=== PATIENT | female | born 1985 | race Caucasian/White ===

== ENCOUNTER → 2019-01-11 07:49 | Outpatient (CLI) | payer MEDICAID, SELFPAY ==
[2018-12-30 10:20] VITALS: BMI 38.2
--- NOTE | 2019-01-11 07:52 | US_ITS ---
STUDY: ULTRASOUND OF THE FEMALE PELVIS - COMPLETE REASON FOR EXAM: Female, 33 years old. Abnormal uterine bleeding. LMP: December 04, 2018. TECHNIQUE: Transabdominal and Transvaginal TECHNICAL QUALITY: Adequate. COMPARISON: None. FINDINGS: The uterus is anteverted and is in a midline position. The uterus measures 8.9 cm x 6.3 cm x 5.4 cm. There is a Nabothian cyst of the cervix. The endometrium measures 10.0 mm in thickness, and is hyperechoic. There is no demonstrated endometrial mass. There is no demonstrated myometrial mass. I.U.D. - The patient does not have an I.U.D. The right ovary is visualized. The right ovary measures 2 cm x 1.6 cm x 1.5 cm. There is no right ovarian cyst or ovarian mass. There is no visualized right adnexal mass or complex lesion. There is normal arterial and normal venous vascularity. The left ovary is visualized. The left ovary measures 3.1 cm x 2.1 cm x 1.4 cm. There is no left ovarian cyst or ovarian mass. There is no visualized left adnexal mass or complex lesion. There is normal arterial and normal venous vascularity. There is no fluid in the cul-de-sac. The pre void volume of the bladder was 462 ml. Polycystic ovary disease: No. US/Transvaginal Non- IMPRESSION: Endometrial thickness within the upper limits of normal. Electronically Signed: Abimael Gerardo, at 8:44 EDT , Service support ,
--- NOTE | 2019-01-11 07:52 | US_ITS ---
STUDY: ULTRASOUND OF THE FEMALE PELVIS - COMPLETE REASON FOR EXAM: Female, 33 years old. Abnormal uterine bleeding. LMP: December 04, 2018. TECHNIQUE: Transabdominal and Transvaginal TECHNICAL QUALITY: Adequate. COMPARISON: None. FINDINGS: The uterus is anteverted and is in a midline position. The uterus measures 8.9 cm x 6.3 cm x 5.4 cm. There is a Nabothian cyst of the cervix. The endometrium measures 10.0 mm in thickness, and is hyperechoic. There is no demonstrated endometrial mass. There is no demonstrated myometrial mass. I.U.D. - The patient does not have an I.U.D. The right ovary is visualized. The right ovary measures 2 cm x 1.6 cm x 1.5 cm. There is no right ovarian cyst or ovarian mass. There is no visualized right adnexal mass or complex lesion. There is normal arterial and normal venous vascularity. The left ovary is visualized. The left ovary measures 3.1 cm x 2.1 cm x 1.4 cm. There is no left ovarian cyst or ovarian mass. There is no visualized left adnexal mass or complex lesion. There is normal arterial and normal venous vascularity. There is no fluid in the cul-de-sac. The pre void volume of the bladder was 462 ml. Polycystic ovary disease: No. US/Pelvic (Non ) IMPRESSION: Endometrial thickness within the upper limits of normal. Electronically Signed: Abimael Gerardo, at 8:44 EDT , Service support ,
== END ==
PROVIDERS: Family Provider Internal Medicine; PCP Internal Medicine; Referring Provider Obstetrics & Gynecology; Visit Provider Obstetrics & Gynecology
DX: N93.9 Abnormal uterine and vaginal bleeding, unspecified (principal); F32.81 Premenstrual dysphoric disorder
CPT/HCPCS: 76830; 76856

== ENCOUNTER → 2019-01-15 14:38 | Outpatient (CLI) | payer MEDICAID, SELFPAY ==
[2018-12-30 10:20] VITALS: BMI 38.2
[2019-01-15 15:52] LABS: Estradiol 20.1 pg/mL; Follicle Stimulating Hormone 3.5 mIU/mL; Prolactin 10.2 ng/mL; T4 Free Direct 0.85 ng/dL (0.76-1.46); Thyroid Stim Hormone (TSH) 3.42 uIU/mL (0.358-3.74)
[2019-01-18 16:12] LABS: DHEA Sulfate 112.5 ug/dL (57.3-279.2)
[2019-01-18 16:33] LABS: Testosterone Free 0.3 pg/mL (0.0-4.2)
[2019-01-22 11:34] LABS: 17-Hydroxyprogesterone < 10 ng/dL (.); Vitamin D 1,25-Dihydroxy 52.8 pg/mL (19.9-79.3)
== END ==
PROVIDERS: Family Provider Internal Medicine; PCP Internal Medicine; Referring Provider Obstetrics & Gynecology; Visit Provider Obstetrics & Gynecology
DX: N93.9 Abnormal uterine and vaginal bleeding, unspecified (principal); F32.81 Premenstrual dysphoric disorder
CPT/HCPCS: 82627; 82652; 82670; 83001; 83498; 84146; 84402; 84439; 84443; 82626

== ENCOUNTER → 2019-02-03 13:51 | Outpatient (CLI) | payer MEDICAID, SELFPAY ==
[2019-02-03 13:44] VITALS: BMI 38.2
[2019-02-03 15:46] LABS: HIV - WCH Non-Reactive (Nonreactive)
[2019-02-03 17:56] LABS: Chlamydia Trachomatis by PCR Negative (Negative); Neisserai gonorrhoeae by PCR Negative (Negative); Probe Check PASS; Sample Adequacy Control PASS; Specimen Processing Control PASS
[2019-02-04 02:21] LABS: Rapid Plasmin Reagin (RPR) NONREACTIVE (NONREACTIVE)
[2019-02-06 09:07] LABS: HCV Quant. RNA PCR HCV Not Detected IU/mL (.)
[2019-02-06 11:40] LABS: HSV 1 IgG < 0.91 index (0.00-0.90); HSV 2 IgG < 0.91 index (0.00-0.90)
== END ==
PROVIDERS: Family Provider Internal Medicine; PCP Internal Medicine; Referring Provider Obstetrics & Gynecology; Visit Provider Obstetrics & Gynecology
DX: Z11.3 Encounter for screening for infections with a predominantly sexual mode of transmission (principal)
CPT/HCPCS: 36415; 86592; 86695; 86696; 86703; 87491; 87522; 87591

== ENCOUNTER → 2019-12-02 12:55 | Outpatient (CLI) | payer MEDICAID, SELFPAY ==
[2019-12-02 12:16] VITALS: BMI 38.2
== END ==
PROVIDERS: PCP Internal Medicine; Referring Provider Nurse Practitioner Women's Health; Visit Provider Nurse Practitioner Women's Health
DX: N76.1 Subacute and chronic vaginitis (principal); N39.0 Urinary tract infection, site not specified; R10.2 Pelvic and perineal pain
CPT/HCPCS: 87070; 87205

== ENCOUNTER → 2020-04-25 17:01 | Outpatient (CLI) | payer MEDICAID, SELFPAY ==
[2020-04-25 16:18] VITALS: BMI 32.5
[2020-05-01 01:57] LABS: HPV APTIMA, High Risk Positive (Negative)
== END ==
PROVIDERS: PCP Internal Medicine; Referring Provider Obstetrics & Gynecology; Visit Provider Obstetrics & Gynecology
DX: Z12.4 Encounter for screening for malignant neoplasm of cervix (principal)
CPT/HCPCS: 87624; 88175; G0145

== ENCOUNTER → 2020-04-28 07:37 | Outpatient (CLI) | payer MEDICAID, SELFPAY ==
[2020-04-25 16:18] VITALS: BMI 32.5
[2020-04-28 08:42] LABS: Vitamin D,25 Hydroxy 32.4 ng/mL
[2020-04-28 08:47] LABS: Cholesterol 172 mg/dL (200); Glucose 73 mg/dL (74-106); High Density Lipoprotein 61 mg/dL; Thyroid Stim Hormone (TSH) 4.49 uIU/mL (0.358-3.74); Triglycerides 109 mg/dL; Very Low Density Lipoprotein 22 mg/dL (5-40)
== END ==
PROVIDERS: PCP Internal Medicine; Referring Provider Obstetrics & Gynecology; Visit Provider Obstetrics & Gynecology
DX: Z01.411 Encounter for gynecological examination (general) (routine) with abnormal findings (principal)
CPT/HCPCS: 36415; 80061; 82306; 82947; 84443

== ENCOUNTER → 2020-05-05 07:42 | Outpatient (CLI) | payer MEDICAID, SELFPAY ==
[2020-04-25 16:18] VITALS: BMI 32.5
--- NOTE | 2020-05-05 07:54 | US_ITS ---
STUDY: THYROID ULTRASOUND REASON FOR EXAM: Female, 35 years old. ELEVATED TSH -- HX OF HASHIM OTTOS TECHNIQUE: Ultrasound evaluation of the thyroid was performed with real-time and static vasquez-scale imaging. COMPARISON: None. FINDINGS: RIGHT LOBE: The right lobe of the thyroid gland measures 4.9 cm x 1.7 cm x 1.3 cm. There is a heterogeneous echotexture. There are 3 hypoechoic solid nodules within the right lobe. The largest measures 1 cm x 0.8 cm x 0.4 cm. LEFT LOBE: The left lobe of the thyroid gland measures 4.9 cm x 1.9 cm x 1 cm. There is a heterogeneous echotexture. 3 subcentimeter hypoechoic solid nodules. The largest measures 7 mm x 4 mm x 3 mm. ISTHMUS: The isthmus measures 4 mm. The regional lymph nodes are normal. US/Thyroid IMPRESSION: Heterogeneous echotexture of both lobes of the thyroid gland. There are 3 small hypoechoic solid nodules in each lobe. The largest measures 1 cm x 0.8 cm x 0.4 cm. This is in the right lobe. Electronically Signed: Abimael Gerardo MD at 10:30 EST , Service support ,
[2020-05-05 08:19] LABS: T4 Free Direct 1.06 ng/dL (0.76-1.46)
[2020-05-05 15:52] LABS: Xtra Tube EP Lab EXTRA TUBE
== END ==
PROVIDERS: PCP Internal Medicine; Referring Provider Obstetrics & Gynecology; Visit Provider Obstetrics & Gynecology
DX: R79.89 Other specified abnormal findings of blood chemistry (principal)
CPT/HCPCS: 36415; 76536; 84439

== ENCOUNTER → 2020-05-11 16:32 | Outpatient (CLI) | payer MEDICAID, SELFPAY ==
--- NOTE | 2020-05-11 | CER_PTH ---
PATIENT: JANA GARBER [id number] AGE/SX: 39/F ROOM: RE05/11/[address]: Dr. Yanira Park MD : 1985 BED: DIS: SPEC #: [id number] RECD: 05/11/20 16:14 STATUS: LENNY DAVIDE #: [id number] IHSAN: 05/11/20 00:[address]: Yanira Park DEPT: SURGICAL PATHOLOGY RECD BY: Clayton Fu ENTERED: 05/12/20 09:19 SP TYPE: CERV OTHR DR: Dr. Chanel Ko MD Tissues: A - Uterine cervix, NOS B - Endocervical Procedures: Surgery Specimen Level IV HEADER OPERATION: Colposcopy PRE-OP DIAGNOSIS: LGSIL TISSUE SUBMITTED: A - Cervical biopsy 2 o'clock, B - ECC MICROSCOPIC DIAGNOSIS A. Cervix at 2 o'clock, biopsy: Focal HPV change present. Chronic inflammation. See comment. B. Endocervix, curettings: Scant strips of benign superficial endocervix. No evidence of dysplasia. AM:hank 05/15/2020 COMMENT A. Results from immunohistochemistry ([id number]) for surrogate HPV marker (p16) will be reported separately. MICROSCOPIC DESCRIPTION Slides are reviewed. GROSS DESCRIPTION A - Received in fixative is one container labeled with the patient's name and designated cervical biopsy 2 o'clock. The specimen consists of one irregular fragment of light pack soft tissue that measures 0.2 x 0.2 x 0.1 cm. The specimen is totally submitted in one cassette. B - Received in fixative is one container labeled with the patient's name and designated ECC. The specimen consists of a scant amount of soft tissue. The specimen is totally submitted for cell block preparation. / SJ:hank 05/12/20 TC:3 CPT: 66613 x2
--- NOTE | 2020-05-11 | IMM_PTH ---
PATIENT: JANA GARBER LOC: [facility] U#:[id number] AGE/SX: 39/F ROOM: RE05/11/[address]: Dr. Yanira Park MD : 1985 BED: DIS: SPEC #: [id number] RECD: 05/15/20 14:29 STATUS: LENNY REQ #: [id number] IHSAN: 05/11/20 00:[address]: Yanira Park DEPT: IMMUNOHISTOCHEMISTRY RECD BY: Christy Dee ENTERED: 05/15/20 14:30 SP TYPE: IMMUNO OTHR DR: Dr. Chanel Ko MD Tissues: A - Uterine cervix, NOS Procedures: p16 (initial) KI-67 (add) PHYSICIAN & INSTITUTION [place] [id number] SPECIMEN INFORMATION: Tissue Source: A - Cervical biopsy 2 o'clock Clinical Info: NIKITA Specimen Number: [id number] CPT code: 65196, 55714 METHODOLOGY: Deparaffinized sections of prefer/formalin-fixed tissue or PAP/DQ stained slides are incubated with monoclonal/polyclonal antibodies/oligonucleotide probes. Localization is made via biotin free immunoperoxidase method. Appropriate controls are performed and reacted as expected. Results on target cell population are indicated in the following table: RESULTS: ANTIBODY / CLONE RESULT Block A P16 (E6H4) positive, focal, patchy Ki-67 (30-9) positive, low These tests were developed and their performance characteristics determined by [facility]. They may not have been cleared or approved by the U.S. Food and Drug Administration. The FDA has determined that such clearance or approval is not necessary. The above immunohistochemical/dualISH markers are ordered and reviewed by the Pathologist. INTERPRETATION: A. Cervix at 2 o'clock, biopsy: Focal HPV change present. AM:hank 05/16/2020
[2020-05-11 11:36] VITALS: BMI 32.3
== END ==
PROVIDERS: PCP Internal Medicine; Referring Provider Obstetrics & Gynecology; Visit Provider Obstetrics & Gynecology
DX: R87.612 Low grade squamous intraepithelial lesion on cytologic smear of cervix (LGSIL) (principal)
CPT/HCPCS: 88305; 88341; 88342

== ENCOUNTER → 2020-05-19 07:36 | Outpatient (CLI) | payer MEDICAID, SELFPAY ==
[2020-05-19 08:28] LABS: Estradiol 12.5 pg/mL; Follicle Stimulating Hormone 2.5 mIU/mL
== END ==
PROVIDERS: PCP Internal Medicine; Referring Provider Obstetrics & Gynecology; Visit Provider Obstetrics & Gynecology
DX: E23.0 Hypopituitarism (principal)
CPT/HCPCS: 36415; 82670; 83001

== ENCOUNTER → 2020-05-31 16:14 | Outpatient (CLI) | payer MEDICAID, SELFPAY ==
[2020-05-19 08:45] VITALS: BMI 31.5
--- NOTE | 2020-05-31 16:14 | MRI_ITS ---
STUDY: MRI BRAIN WITH AND WITHOUT CONTRAST REASON FOR EXAM: Female, 35 years old. abnormal blood work gonadotropin deficiency TECHNIQUE: Standardized multiplanar fat and water weighted pulse sequences were obtained. DOTAREM 17ML IV was administered for the contrast portion of the examination. COMPARISON: None. FINDINGS: Normal size of the ventricles and extra-axial spaces for the patient''s age. Normal white matter tracts of the supratentorial brain. Normal bilateral basal ganglia. Normal thalami. There is no extra-axial fluid accumulation. Normal flow voids within the major intracranial circulation suggesting patency by spin echo criteria. Normal venous enhancement. There is no enhancing intra-axial or extra-axial abnormality. Normal sella turcica, pituitary gland, infundibular stalk, optic chiasm and hypothalamus. Normal tectal plate and pineal gland. Normal midbrain, yin and medulla. Normal cerebellum. Normal basal cisterns. Normal bilateral temporal bones. Normal bilateral internal auditory canals. No demonstrated orbital abnormality, within the constraints of a routine brain study. Normal visualized paranasal sinuses. Normal calvarium and skull base. Normal visualized soft tissue structures. Normal visualized upper cervical spine. MRI/Brain W/WO Contrast IMPRESSION: Normal unenhanced and enhanced MRI of the brain. No definitive evidence for pituitary adenoma although microadenoma not entirely excluded Electronically Signed: Ammon Villafuerte MD at 18:23 EST , Service support ,
== END ==
PROVIDERS: PCP Internal Medicine; Referring Provider Obstetrics & Gynecology; Visit Provider Obstetrics & Gynecology
DX: E23.0 Hypopituitarism (principal)
CPT/HCPCS: 70553; A9575

== ENCOUNTER 2021-07-12 16:02 | Outpatient (CLI) | payer MEDICAID, SELFPAY ==
[2021-07-20 16:04] LABS: HPV APTIMA, High Risk Positive (Negative)
== END 2021-07-12 23:59 | disposition home or self-care (01) ==
LOC: LABSPEC 16:02
PROVIDERS: PCP Internal Medicine; Visit Provider Obstetrics & Gynecology
DX: Z12.4 Encounter for screening for malignant neoplasm of cervix (principal)
CPT/HCPCS: 87624; 88175; G0145

== ENCOUNTER → 2021-08-23 | Outpatient (CLI) | payer MEDICAID, SELFPAY ==
--- NOTE | 2021-08-23 | IMM_PTH ---
PATIENT: JANA GARBER LOC: [facility] U#:[id number] AGE/SX: 36/F ROOM: RE08/23/[address]: Dr. Cori Cardozo DO : 1985 BED: DIS: 08/23/2021 SPEC #: [id number] RECD: 08/28/21 13:56 STATUS: LENNY REQ #: [id number] IHSAN: 08/23/21 00:[address]: Cori Cardozo DEPT: IMMUNOHISTOCHEMISTRY RECD BY: Christy Dee ENTERED: 08/28/21 13:57 SP TYPE: IMMUNO OTHR DR: Dr. Chanel Ko MD Tissues: B - Uterine cervix, NOS Procedures: p16 (initial) KI-67 (add) PHYSICIAN & INSTITUTION [place] [phone] SPECIMEN INFORMATION: Tissue Source: B ? Cervix at 12 o?clock, biopsy Clinical Info: LGSIL, HPV positive Specimen Number: [id number] CPT code: 05235, 75195 METHODOLOGY: Deparaffinized sections of prefer/formalin-fixed tissue or PAP/DQ stained slides are incubated with monoclonal/polyclonal antibodies/oligonucleotide probes. Localization is made via biotin free immunoperoxidase method. Appropriate controls are performed and reacted as expected. Results on target cell population are indicated in the following table: RESULTS: ANTIBODY / CLONE RESULT Block B P16 (E6H4) positive, focal, patchy Ki-67 (30-9) positive, low These tests were developed and their performance characteristics determined by [facility]. They may not have been cleared or approved by the U.S. Food and Drug Administration. The FDA has determined that such clearance or approval is not necessary. The above immunohistochemical/dualISH markers are ordered and reviewed by the Pathologist. INTERPRETATION: B. Cervix at 12 o?clock, biopsy: Consistent with mild squamous dysplasia, EUGENIO I (LSIL). AM:hank 08/29/2021
--- NOTE | 2021-08-23 14:00 | CER_PTH ---
PATIENT: JANA GARBER [facility] U#:[id number] AGE/SX: 36/F ROOM: RE08/23/[address]: Dr. Cori Cardozo DO : 1985 BED: DIS: 08/23/2021 SPEC #: [id number] RECD: 08/23/21 15:09 STATUS: LENNY AUGUSTINE #: [id number] IHSAN: 08/23/21 14:[address]: Cori Cardozo DEPT: SURGICAL PATHOLOGY RECD BY: Perla Maravilla ENTERED: 08/24/21 09:12 SP TYPE: CERV OTHR DR: Dr. Chanel Ko MD Tissues: A - Endocervical B - Uterine cervix, NOS Procedures: Surgery Specimen Level IV HEADER OPERATION: Colposcopy PRE-OP DIAGNOSIS: LGSIL, HPV positive TISSUE SUBMITTED: A ? Endocervical curettings, B ? 12 o?clock biopsy MICROSCOPIC DIAGNOSIS A. Endocervix, curettings: Scant strips of benign superficial glandular mucosa. B. Cervix at 12 o?clock, biopsy: Mild squamous dysplasia, EUGENIO I (LGSIL). Acute and chronic inflammation. See comment. AM:hank 08/28/2021 COMMENT B. Results from immunohistochemistry ([id number]) for surrogate HPV marker (p16) will be reported separately. MICROSCOPIC DESCRIPTION Slides are reviewed. GROSS DESCRIPTION A - Received in fixative is one container labeled with the patient's name and designated endocervical curettings. The specimen consists of a scant amount of soft tissue. The specimen is totally submitted for cell block preparation. B - Received in fixative is one container labeled with the patient's name and designated 12 o'clock. The specimen consists of one irregular fragment of light pack soft tissue that measures 0.5 x 0.5 x 0.1 cm. Also present in the container are fragments of pack mucoid tissue measuring in aggregate 0.5 x 0.5 x 0.1 cm. The specimen is totally submitted in one cassette. / SJ:hank 08/24/2021 TC:3 CPT: 17063 x2
== END | disposition home or self-care (01) ==
LOC: LABSPEC 15:56
PROVIDERS: PCP Internal Medicine; Visit Provider Obstetrics & Gynecology
DX: R87.622 Low grade squamous intraepithelial lesion on cytologic smear of vagina (LGSIL) (principal)
CPT/HCPCS: 88305; 88341; 88342

== ENCOUNTER → 2022-08-08 | Outpatient (CLI) | payer MEDICAID, SELFPAY ==
[2022-08-12 22:06] LABS: Chlamydia By Nucleic Acid AMP Negative (Negative); Gonococcus By Nucleic Acid AMP Negative (Negative)
[2022-08-16 14:10] LABS: HPV APTIMA, High Risk Positive (Negative)
== END | disposition home or self-care (01) ==
LOC: LABSPEC 11:58
PROVIDERS: PCP Internal Medicine; Referring Provider Obstetrics & Gynecology; Visit Provider Obstetrics & Gynecology
DX: Z12.4 Encounter for screening for malignant neoplasm of cervix (principal); Z11.3 Encounter for screening for infections with a predominantly sexual mode of transmission; N89.8 Other specified noninflammatory disorders of vagina
CPT/HCPCS: 87070; 87205; 87491; 87591; 87624; 88175; G0145

== ENCOUNTER → 2022-10-03 | Outpatient (CLI) | payer MEDICAID, SELFPAY ==
--- NOTE | 2022-10-03 | CER_PTH ---
PATIENT: JANA GARBER LOC: [facility]#:[id number] AGE/SX: 37/F ROOM: RE10/03/[address]: Dr. Yanira Park MD : 1985 BED: DIS: 10/03/2022 SPEC #: [id number] RECD: 10/03/22 16:40 STATUS: LENNY GANNOralia #: [id number] IHSAN: 10/03/22 00:[address]: Yaniar Park DEPT: SURGICAL PATHOLOGY RECD BY: Sharron Gilbert ENTERED: 10/04/22 08:18 SP TYPE: CERV OTHR DR: Dr. 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 Chronic inflammation. See comment. COMMENT Immunohistochemistry ([id number]) supports the above diagnosis. MICROSCOPIC DESCRIPTION Slides are reviewed. GROSS DESCRIPTION Received in fixative is one container labeled with the patient's name and designated 1 o'clock. The specimen consists of one irregular fragment of light pack soft tissue that measures 0.5 x 0.5 x 0.1 cm. The specimen is totally submitted in one cassette. / SJ:hank 10/04/2022 TC:5 CPT: 81852
--- NOTE | 2022-10-04 | IMM_PTH ---
PATIENT: JANA GARBER LOC: [facility] U#:[id number] AGE/SX: 37/F ROOM: RE10/03/[address]: Dr. Yanira Park MD : 1985 BED: DIS: 10/03/2022 SPEC #: [id number] RECD: 10/07/22 14:50 STATUS: LENNY REQ #: [id number] IHSAN: 10/04/22 00:[address]: Yanira Park DEPT: IMMUNOHISTOCHEMISTRY RECD BY: Sharron Gilbert ENTERED: 10/07/22 14:51 SP TYPE: IMMUNO OTHR DR: Dr. Chanel Ko MD Tissues: Uterine cervix, NOS Procedures: p16 (initial) KI-67 (add) PHYSICIAN & INSTITUTION [place] [id number] SPECIMEN INFORMATION: Tissue Source: Cervix, 1 o'clock Clinical Info: LSIL Specimen Number: [id number] CPT code: 85112, 53853 METHODOLOGY: Deparaffinized sections of prefer/formalin-fixed tissue or PAP/DQ stained slides are incubated with monoclonal/polyclonal antibodies/oligonucleotide probes. Localization is made via biotin free immunoperoxidase method. Appropriate controls are performed and reacted as expected. Results on target cell population are indicated in the following table: RESULTS: ANTIBODY / CLONE RESULT P16 (E6H4) positive, focal and patchy Ki-67 (30-9) positive, low These tests were developed and their performance characteristics determined by [facility]. They may not have been cleared or approved by the U.S. Food and Drug Administration. The FDA has determined that such clearance or approval is not necessary. The above immunohistochemical/dualISH markers are ordered and reviewed by the Pathologist. INTERPRETATION: Cervix, 1 o'clock, biopsy: Focal mild squamous dysplasia. SJ: 10/08/22
== END | disposition home or self-care (01) ==
LOC: LABSPEC 16:43
PROVIDERS: PCP Internal Medicine; Referring Provider Obstetrics & Gynecology; Visit Provider Obstetrics & Gynecology
DX: R87.612 Low grade squamous intraepithelial lesion on cytologic smear of cervix (LGSIL) (principal)
CPT/HCPCS: 88305; 88341; 88342